=== PATIENT | female | born 1975 | race Caucasian/White ===

== ENCOUNTER 2020-10-17 22:39 | Emergency (ER) | payer OTHER ==
[2020-10-18 00:14] LABS: BASOPHIL 0.5 % (0-2); EOSINOPHIL 0.8 % (0-5); HCT 43.2 % (37.0-47.0); HGB 13.8 g/dl (12.5-16.0); LYMPHOCYTE 25.9 % (15-48); MCH 28.2 pg (25.0-31.0); MCHC 31.9 g/dL (32.0-36.0); MCV 88.3 fL (78.0-100.0); MONOCYTE 7.1 % (0-12); MPV 9.2 fL (6.0-9.5); NEUTROPHIL 64.7 % (41-80); NRBC 0; PLT 335 K/uL (150-400); RBC 4.89 M/uL (4.20-5.40); RDW 13.6 % (11.5-14.0); WBC 7.3 K/uL (4.0-10.5)
[2020-10-18 00:23] LABS: BILIRUBIN - TOTAL 0.2 mg/dL (0.2-1.0); BUN/CREAT RATIO (CALC) 20.9 RATIO; CREATININE 0.91 mg/dL (0.51-0.95); GLOBULIN (CALCULATION) 3.9 g/dL; POTASSIUM 3.9 mmol/L (3.5-5.1); TOTAL PROTEIN 7.9 g/dL (6.4-8.2)
[2020-10-18] MEDS ORDERED: PEPCID AC20 MG PO (02:56)
== END 2020-10-18 03:10 | disposition home or self-care (01) ==
LOC: FER 22:39
PROVIDERS: Emergency Medicine
DX: R10.13 Epigastric pain (principal); R07.1 Chest pain on breathing; I10 Essential (primary) hypertension; Z90.49 Acquired absence of other specified parts of digestive tract; Z88.2 Allergy status to sulfonamides
CPT/HCPCS: 36415; 71045; 80053; 83690; 84484; 85025; 85379; 93005; J2270; J2405